=== PATIENT | male | born 1985 | race Caucasian/White ===

== ENCOUNTER 2017-10-26 09:56 | Emergency (ER) | payer MEDICAID ==
[2017-10-26] MEDS: IBUPROFEN 600 MG TAB PO (10:25)
== END 2017-10-26 12:34 | disposition home or self-care (01) ==
LOC: FTE 09:56
DX: S99.912A Unspecified injury of left ankle, initial encounter (principal); X58.XXXA Exposure to other specified factors, initial encounter; Y92.9 Unspecified place or not applicable
CPT/HCPCS: 73610; 73630-LT; 99283-25